=== PATIENT | male | born 1990 | race Two or more races ===

== ENCOUNTER 2018-07-13 01:42 | Emergency (ER) | payer SELFPAY ==
[2018-07-13] MEDS ORDERED: ACETAMINOPHEN 325 MG TABLET PO ONE (01:50)
[2018-07-13] MEDS ORDERED: IBUPROFEN 600 MG TABLET PO ONE (01:50)
[2018-07-13] MEDS ORDERED: DIPH/PERTUSS(ACELL)/TETANUS VAC/PF 0.5 ML SYR (>=10YO) IM ONE (01:50)
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
[2018-07-13 03:05] VITALS: BP 117/81
== END 2018-07-13 03:34 | disposition home or self-care (01) ==
LOC: ER 01:42
PROC: 0HQ1XZZ Repair Face Skin, External Approach (ICD-10-PCS; principal; 2018-07-13)
DX: S01.81XA Laceration without foreign body of other part of head, initial encounter (principal); S09.93XA Unspecified injury of face, initial encounter; S09.90XA Unspecified injury of head, initial encounter; S29.9XXA Unspecified injury of thorax, initial encounter; R42 Dizziness and giddiness; Y04.0XXA Assault by unarmed brawl or fight, initial encounter
CPT/HCPCS: 70450; 70486; 71046; 72125; 90471; 90715; 99284